=== PATIENT | male | born 1990 | race Caucasian/White ===

== ENCOUNTER → 2016-10-16 | Day surgery (SDC) | payer OTHER ==
[~2016-10-16] VITALS: Ht 182.9 cm; Wt 103.9 kg
[~2016-10-16] MED LIST: B-1100 MG PO; EFFEXOR75 MG PO; PRINIVIL OR ZES10 MG PO; VENLAFAXINE HCL75 MG PO
== END | disposition disaster alternative care site (69) ==
LOC: GPOC 10-12 13:00 → GEND 08:14
PROC: 0DB98ZX Excision of Duodenum, Via Natural or Artificial Opening Endoscopic, Diagnostic (ICD-10-PCS; principal; 2016-10-16)
PROC: 0DJD8ZZ Inspection of Lower Intestinal Tract, Via Natural or Artificial Opening Endoscopic (ICD-10-PCS; 2016-10-16)
DX: K92.1 Melena (principal); K92.0 Hematemesis; Z87.19 Personal history of other diseases of the digestive system; Z80.0 Family history of malignant neoplasm of digestive organs; F32.9 Major depressive disorder, single episode, unspecified; I10 Essential (primary) hypertension; F17.210 Nicotine dependence, cigarettes, uncomplicated; Z88.2 Allergy status to sulfonamides; Z88.1 Allergy status to other antibiotic agents; Z79.899 Other long term (current) drug therapy; Z98.890 Other specified postprocedural states
CPT/HCPCS: J2001; J7030

== ENCOUNTER → 2016-12-10 | Outpatient (CLI) | payer OTHER | END | disposition disaster alternative care site (69) | LOC: GRAD 10:35 | DX: M25.422 Effusion, left elbow (principal); M25.522 Pain in left elbow ==